=== PATIENT | male | born 1995 | race Caucasian/White ===

== ENCOUNTER 2016-08-01 19:45 | Emergency (ER) | payer OTHER ==
--- NOTE | 2016-08-01 20:45 | DIAGNOSTIC IMAGING REPORT ---
PROCEDURE: CT ABDOMEN/PELVIS W/O CONTRAST INDICATION: FLANK PAIN TECHNIQUE: Noncontrast axial images with sagittal and coronal reformations. COMPARISON: None. FINDINGS: ABDOMEN: There is moderate left hydronephrosis and hydroureter secondary to a 3 mm calculus located at the left ureteral vesicle junction. There is a 0.5 mm nonobstructing calculus in the lower pole left kidney. Right kidney and ureter are normal. Gallbladder, liver, spleen, pancreas, and aorta are normal. Bowel pattern is normal, including appendix. PELVIS: Pelvic structures are normal. IMPRESSION: 1. Moderate left hydronephrosis and hydroureter secondary to a 3 mm calculus located at the left ureteral vesicle junction. 2. There is a 0.5 mm nonobstructing calculus in the lower pole left kidney. 3. Otherwise negative CT abdomen and pelvis. 4. Findings discussed with Dr. Boris Maloney. All CT scans at this facility use dose modulation, iterative reconstruction, and/or weight-based dosing when appropriate to reduce radiation dose to as low as reasonably achievable.
--- NOTE | 2016-08-01 20:50 | ED NURSING NOTES ---
Clinical Report - Nurses [facility] [address] [place] [address] 08/01/2016 19:45 Patient: JAZMYN MARIO TRIAGE Triage time 19:51. Acuity: LEVEL 3. Chief Complaint: TESTICULAR PAIN and (left flank pain). --19:58 Getachew Magaña R.N. 19:51 08/01/16. BP: 143/95. HR: 56. RR: 16. O2 saturation: 100%. Temp: 98.7 F. Pain level now: 11/03. --19:58 Getachew Magaña R.N. Weight: 68.9 kg stated. Height/Length: 69 inches Per Patient. BMI: 22.4. --19:57 Getachew Magaña R.N. Medications Ibuprofen Oral. --19:55 Getachew Magaña R.N. Flomax Oral. --19:55 Getachew Magaña R.N. Medication/allergy information source: the patient. --19:58 Getachew Magaña R.N. Allergies No Known Drug Allergy. --19:55 Getachew Magaña R.N. History Arrived by private vehicle. Historian: patient. ( Seen at [facility] last Friday with left side flank pain radiating to groin/testicles and diagnosed kidney stones after CT Scan. Marylou started having the same pain on his left flank going to his left groin/testicles. Vomited x1 due to pain, denies fever.). Onset. (5 days ago). He has had moderate testicular pain, involving the left testicle. 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 SURGERY HX: ( broken right clavicle). --19:58 Getachew Magaña R.N. SOCIAL HX: Never smoker. Occasional alcohol use. --20:01 Getachew Magaña R.N. PROBLEMS: Nephrolithiasis. --19:57 Getachew Magaña R.N. Interventions ID band on patient. To room. --19:58 Getachew Magaña R.N. PHYSICAL ASSESSMENT Ambulatory to room. GENERAL / NEURO / PSYCH: Alert. Oriented X 4. Appears in pain. HEENT: Mucous membranes are pink. RESPIRATORY: Respirations not labored. Breath sounds within normal limits. CVS: Normal heart rate and rhythm. Capillary refill less than 2 seconds. GI / : Abdomen soft. Bowel sounds within normal limits. Urgency of urination. Left testicular tenderness. CVA tenderness on the left. SKIN: Skin is warm and dry. --20:00 Getachew Magaña R.N. NURSING PROGRESS NOTES Head of bed elevated. Reassurance given. Call light placed in reach. Side rails up x 1. Bed placed in lowest position. Brakes of bed on. Patient ready for evaluation- ED physician notified. --20:00 Getachew Magaña R.N. 20:15 08/01/2016 Site #1 started via IV in the right antecubital space with an 20g angiocath; one attempt. Blood drawn: rainbow set. Saline lock flushed with 10 mL saline. --20:20 Getachew Magaña R.N. 20:16 08/01/2016 Zofran (Ondansetron HCl) IVP 4 mg given over 2 minute(s) via site #1. Allergies verified and confirmed 5 rights. IV patency established. IV site checked: no pain, redness, or swelling. IV flushed thoroughly pre- and post-medication administration. IVP given by RN. --20:21 Getachew Magaña R.N. 20:16 08/01/2016 Dilaudid (HYDROmorphone HCl PF) IVP 0.5 mg given over 2 minute(s) via site #1. Allergies verified, confirmed 5 rights and sedative warning given to the patient. IV patency established. IV site checked: no pain, redness, or swelling. IV flushed thoroughly pre- and post-medication administration. IVP given by RN. --20:21 Getachew Magaña R.N. 20:22 08/01/2016 Toradol IVP 30 mg given over 2 minute(s) via site #1. Allergies verified and confirmed 5 rights. IV patency established. IV site checked: no pain, redness, or swelling. IV flushed thoroughly pre- and post-medication administration. IVP given by RN. --20:22 Getachew Magaña R.N. 20:30 08/01/2016 Started IV Fluids IV NS (Saline); bolus of 1000 mL over 1 hour(s) via site #1 via IV pump. Allergies verified and confirmed 5 rights. IV patency established. IV site checked: no pain, redness, or swelling. IV flushed thoroughly pre- and post-medication administration. --20:35 Getachew Magaña R.N. 20:35 08/01/16. BP: 134/82. HR: 70. RR: 16. O2 saturation: 97%. Pain level now 10. --20:38 Getachew Mgaaña R.N. Reassessment after medication administered. He is calm. Overall patient status is improved- he states feels better. ( left flank and testicle pain down to 2/10 from 910 after the medications). SKIN: Skin is warm and dry. Skin color within normal limits. --20:38 Getachew Magaña R.N. 21:00 08/01/2016 IV Fluids IV NS Discontinued: bag #1 infused upon discharge. Total amount infused: 1000 mL. IV patency established. IV site checked: no pain, redness, or swelling. IV flushed thoroughly. --21:00 Getachew Magaña R.N. 21:08/01/2016 Site #1 removed upon discharge. Manual pressure applied. --21:01 Getachew Magaña R.N. DISPOSITION / DISCHARGE No learning barriers present. Discharge instructions provided and reviewed with the patient. Reviewed medication(s) side effects, precautions, dosing and course information. Prescription(s) given to the patient. Reviewed referral to a primary care physician for followup. Work note given. Patient verbalized understanding. Written instructions provided in Japanese. The patient was discharged home and accompanied by parent. He left the Emergency Department ambulatory and via private vehicle. Parent driving. --21:05 Getachew Magaña R.N. 21:00 08/01/16. BP: 140/84. HR: 74. RR: 16. O2 saturation: 100%. Temp: 98.3 F (oral). Pain level now: 03/05. --21:05 Getachew Magaña R.N. Departure time: 21:08. --21:09 Getachew Magaña R.N. Locked/Released at 08/01/2016 21:09 by Getachew Magaña R.N.
--- NOTE | 2016-08-01 20:50 | ED CLINICAL REPORT ---
Clinical Report - Physicians/Mid Levels [facility] [address] [place] [address] 08/01/2016 19:45 Patient: JAZMYN MARIO Time Seen: 19:50 Aug 01 2016. Arrived- By private vehicle. Historian- patient. CPT: ER phys charges level 4 (#[id number]). HISTORY OF PRESENT ILLNESS Chief Complaint: LEFT FLANK PAIN and TESTICULAR PAIN. 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 Tonight started having the same pain on his left flank going to his left groin/testicles. Vomited x1 due to pain, denies fever.). and is still present (worse today). No penile discharge, discomfort with urination, urinary frequency or genital lesion. He has had moderate testicular pain, involving the left testicle. Sexual history is noncontributory. Similar symptoms previously: None. Recent medical care: The patient was seen recently at another facility in a clinic ([facility]). Seen for similar symptoms. Evaluation/treatment: CT scan and urinalysis. Diagnosis: (kidney stone). REVIEW OF SYSTEMS No fever, chills, hematuria, abdominal pain or vomiting. No diarrhea, sore throat, chest pain, difficulty breathing or joint pain. No skin rash or back pain. He has had moderate left-sided flank pain. All systems otherwise negative, except as recorded above. PAST HISTORY ( broken right clavicle).). No history of epididymitis or urinary retention. Medications: Flomax Oral. Ibuprofen Oral. Allergies: No Known Drug Allergy. SOCIAL HISTORY Never smoker. Occasional alcohol use. ADDITIONAL NOTES The nursing notes have been reviewed. PHYSICAL EXAM Vital Signs: 08/01/2016 19:51 BP: 143/95. HR: 56. RR: 16. O2 saturation: 100%. Temp: 98.7 F. Pain level now: 9/10. Appearance: Alert. Appears to be in pain. Patient in moderate distress. ENT: Normal external inspection. CVS: Heart sounds normal. Respiratory: No respiratory distress. Breath sounds normal. Abdomen: Soft and nontender. Back: Normal external inspection. No CVA tenderness. : Normal genitalia. Skin: Normal skin color. No rash. Extremities: Extremities exhibit normal ROM. Neuro: Oriented X 3. LABS, X-RAYS, AND EKG Abdominal CT: A single urinary calculus is present in the left distal ureter (3 mm). There is moderate obstruction. Moderate hydronephrosis of the left kidney. The study was independently viewed by me, interpreted by the radiologist and discussed with the radiologist. Laboratory Tests: UA-Culture if indicated: (AVIS: 08/01/2016 20:00) ( MsgRcvd 08/01/2016 20:27) Final results Test Result Flag Units (Reference) URINE COLOR YELLOW URINE APPEARANCE CLEAR URINE GLUCOSE NEGATIVE (NEGATIVE) URINE BILIRUBIN NEGATIVE (NEGATIVE) URINE KETONE 1+ (NEGATIVE) URINE SPECIFIC GRAVITY 1.020 (1.010-1.030) URINE PH 6.0 (5.0-8.0) URINE PROTEIN NEGATIVE (NEGATIVE) URINE UROBILINOGEN 0.2 EU/dL (0.2-1.0) URINE NITRITE NEGATIVE (NEGATIVE) URINE BLOOD 1+ (NEGATIVE) URINE LEUK ESTERASE NEGATIVE (NEGATIVE) URINE RBC 1-3 rbc/hpf (0-1) URINE WBC RARE wbc/hpf (0-1) URINE EPITHELIAL CELLS RARE EPI/hpf (0-5) URINE BACTERIA NONE SEEN (NONE SEEN) URINE COMMENT CULT NOT INDICATED URINE CULTURES ARE SET-UP BASED ON THE FOLLOWING CRITERIA:POSITIVE NITRITEPOSITIVE LEUKOCYTE ESTERASEGREATER THAN 10 WHITE BLOOD CELLSMODERATE (2+) OR GREATER BACTERIA . PROGRESS AND PROCEDURES Course of Care: IV NS Zofran 4 mg IV Dilaudid 0.5 mg IV Toradol 30 mg IV Patient is stable. Symptoms much better. Patient/family counseled. Disposition: Discharged. Condition: stable and improved. CLINICAL IMPRESSION Ureterolithiasis (single stone) in the left ureter with renal colic and hydronephrosis. INSTRUCTIONS Do not work for two days until better. Drink plenty of fluids. Warnings: Further evaluation is necessary. GENERAL WARNINGS: Return or contact your physician immediately if your condition worsens or changes unexpectedly, if not improving as expected, or if other problems arise. Your Current Medications: CONTINUE TAKING THE FOLLOWING MEDICATIONS: Flomax Oral. Ibuprofen Oral. Prescription Medications: Zofran (orally disintegrating tablets) 4 mg: take 1 orally every 6 hours as needed for nausea. Dispense ten (10). No refill. Oxycodone/APAP 5 mg/325 mg: take 1-2 tablets orally every 4 hours as needed for pain. Dispense twenty (20). No refill. Flomax 0.4 mg: take 1 orally every 24 hours. Dispense ten (10). No refills. Follow-up: Follow up with your doctor Friday in four days. Call for the next available appointment. Understanding of the discharge instructions verbalized by patient. (Electronically signed by Boris Maloney MD 08/05/2016 8:55)
--- NOTE | 2016-08-01 20:50 | ED ORDER SUMMARY ---
..... Patient: JAZMYN MARIO OrderSheet [facility] VisitID: [id number] [address] [place] [address] 20y, M Registration Date/Time: 08/01/2016 ORDER SHEET Weight: 68.9 kg (stated) Allergies: No Known Drug Allergy GENERAL ORDERS: CT Abd/Pel wo Cont Urgent (20:03 08/01/2016 Andriy MACKENZIE) (Ack 20:06 Louise) (20:28 Nancie) UA-Culture if indicated Urgent (20:04 08/01/2016 Andriy MACKENZIE) (20:06 Laura R.N.) (Ack 20:06 Louise) MEDICATION ORDERS: IV FLUIDS: IV NS : initial bolus 1000 mL (1000 mL/hr), then 250 mL/hr for 4h (NOW); Routine (20:03 08/01/2016 Andriy MACKENZIE) (Ack 20:06 Laura R.N.) (20:35 Laura R.N.) Toradol IV 30 mg (NOW) (20:03 08/01/2016 Andriy MACKENZIE) (Ack 20:06 Laura R.N.) (20:22 Laura R.N.) Dilaudid IV 0.5 mg (HIGH ALERT MEDICATION, NOW) (20:03 08/01/2016 Andriy MACKENZIE) (Ack 20:06 Laura R.N.) (20:21 Laura R.N.) Zofran IV 4 mg (NOW) (20:04 08/01/2016 Andriy MACKENZIE) (Ack 20:06 Laura R.N.) (20:21 Laura R.N.) ORDER SHEET NOTES: [Electronically signed by Getachew Magaña R.N. (21:09 08/01/2016)] [Electronically signed by Boris Maloney MD (08:55 08/05/2016)] [Electronically locked/signed by Getachew Magaña R.N. (21:09 08/01/2016)]
--- NOTE | 2016-08-01 20:50 | ED ORDER SUMMARY ---
..... Patient: JAZMYN MARIO OrderSheet [facility] VisitID: [id number] [address] [place] [address] 20y, M Registration Date/Time: 08/01/2016 ORDER SHEET Weight: 68.9 kg (stated) Allergies: No Known Drug Allergy GENERAL ORDERS: CT Abd/Pel wo Cont Urgent (20:03 08/01/2016 Andriy MACKENZIE) (Ack 20:06 Louise) (20:28 Nancie) UA-Culture if indicated Urgent (20:04 08/01/2016 Andriy MACKENZIE) (20:06 Laura R.N.) (Ack 20:06 Louise) MEDICATION ORDERS: IV FLUIDS: IV NS : initial bolus 1000 mL (1000 mL/hr), then 250 mL/hr for 4h (NOW); Routine (20:03 08/01/2016 Andriy MAKCENZIE) (Ack 20:06 Laura R.N.) (20:35 Laura R.N.) Toradol IV 30 mg (NOW) (20:03 08/01/2016 Andriy MACKENZIE) (Ack 20:06 Laura R.N.) (20:22 Laura R.N.) Dilaudid IV 0.5 mg (HIGH ALERT MEDICATION, NOW) (20:03 08/01/2016 Andriy MACKENZIE) (Ack 20:06 Laura R.N.) (20:21 Laura R.N.) Zofran IV 4 mg (NOW) (20:04 08/01/2016 Andriy MACKENZIE) (Ack 20:06 Laura R.N.) (20:21 Laura R.N.) ORDER SHEET NOTES: [Electronically signed by Getachew Magaña R.N. (21:09 08/01/2016)] [Electronically signed by Boris Maloney MD (08:55 08/05/2016)] [Electronically locked/signed by Getachew Magaña R.N. (21:09 08/01/2016)]
--- NOTE | 2016-08-01 20:50 | ED NURSING NOTES ---
Clinical Report - Nurses [facility] [address] [place] [address] 08/01/2016 19:45 Patient: JAZMYN MARIO TRIAGE Triage time 19:51. Acuity: LEVEL 3. Chief Complaint: TESTICULAR PAIN and (left flank pain). --19:58 Getachew Magaña R.N. 19:51 08/01/16. BP: 143/95. HR: 56. RR: 16. O2 saturation: 100%. Temp: 98.7 F. Pain level now: 11/03. --19:58 Getachew Magaña R.N. Weight: 68.9 kg stated. Height/Length: 69 inches Per Patient. BMI: 22.4. --19:57 Getachew Magaña R.N. Medications Ibuprofen Oral. --19:55 Getachew Magaña R.N. Flomax Oral. --19:55 Getachew Magaña R.N. Medication/allergy information source: the patient. --19:58 Getachew Magaña R.N. Allergies No Known Drug Allergy. --19:55 Getachew Magaña R.N. History Arrived by private vehicle. Historian: patient. ( Seen at [facility] last Friday with left side flank pain radiating to groin/testicles and diagnosed kidney stones after CT Scan. Marylou started having the same pain on his left flank going to his left groin/testicles. Vomited x1 due to pain, denies fever.). Onset. (5 days ago). He has had moderate testicular pain, involving the left testicle. 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 SURGERY HX: ( broken right clavicle). --19:58 Getachew Magaña R.N. SOCIAL HX: Never smoker. Occasional alcohol use. --20:01 Getachew Magaña R.N. PROBLEMS: Nephrolithiasis. --19:57 Getachew Magaña R.N. Interventions ID band on patient. To room. --19:58 Getachew Magaña R.N. PHYSICAL ASSESSMENT Ambulatory to room. GENERAL / NEURO / PSYCH: Alert. Oriented X 4. Appears in pain. HEENT: Mucous membranes are pink. RESPIRATORY: Respirations not labored. Breath sounds within normal limits. CVS: Normal heart rate and rhythm. Capillary refill less than 2 seconds. GI / : Abdomen soft. Bowel sounds within normal limits. Urgency of urination. Left testicular tenderness. CVA tenderness on the left. SKIN: Skin is warm and dry. --20:00 Getachew Magaña R.N. NURSING PROGRESS NOTES Head of bed elevated. Reassurance given. Call light placed in reach. Side rails up x 1. Bed placed in lowest position. Brakes of bed on. Patient ready for evaluation- ED physician notified. --20:00 Getachew Magaña R.N. 20:15 08/01/2016 Site #1 started via IV in the right antecubital space with an 20g angiocath; one attempt. Blood drawn: rainbow set. Saline lock flushed with 10 mL saline. --20:20 Getachew Magaña R.N. 20:16 08/01/2016 Zofran (Ondansetron HCl) IVP 4 mg given over 2 minute(s) via site #1. Allergies verified and confirmed 5 rights. IV patency established. IV site checked: no pain, redness, or swelling. IV flushed thoroughly pre- and post-medication administration. IVP given by RN. --20:21 Getachew Magaña R.N. 20:16 08/01/2016 Dilaudid (HYDROmorphone HCl PF) IVP 0.5 mg given over 2 minute(s) via site #1. Allergies verified, confirmed 5 rights and sedative warning given to the patient. IV patency established. IV site checked: no pain, redness, or swelling. IV flushed thoroughly pre- and post-medication administration. IVP given by RN. --20:21 Getachew Magaña R.N. 20:22 08/01/2016 Toradol IVP 30 mg given over 2 minute(s) via site #1. Allergies verified and confirmed 5 rights. IV patency established. IV site checked: no pain, redness, or swelling. IV flushed thoroughly pre- and post-medication administration. IVP given by RN. --20:22 Getachew Magaña R.N. 20:30 08/01/2016 Started IV Fluids IV NS (Saline); bolus of 1000 mL over 1 hour(s) via site #1 via IV pump. Allergies verified and confirmed 5 rights. IV patency established. IV site checked: no pain, redness, or swelling. IV flushed thoroughly pre- and post-medication administration. --20:35 Getachew Magaña R.N. 20:35 08/01/16. BP: 134/82. HR: 70. RR: 16. O2 saturation: 97%. Pain level now 10. --20:38 Getachew Magaña R.N. Reassessment after medication administered. He is calm. Overall patient status is improved- he states feels better. ( left flank and testicle pain down to 2/10 from 910 after the medications). SKIN: Skin is warm and dry. Skin color within normal limits. --20:38 Getachew Magaña R.N. 21:00 08/01/2016 IV Fluids IV NS Discontinued: bag #1 infused upon discharge. Total amount infused: 1000 mL. IV patency established. IV site checked: no pain, redness, or swelling. IV flushed thoroughly. --21:00 Getachew Magaña R.N. 21:08/01/2016 Site #1 removed upon discharge. Manual pressure applied. --21:01 Getachew Magaña R.N. DISPOSITION / DISCHARGE No learning barriers present. Discharge instructions provided and reviewed with the patient. Reviewed medication(s) side effects, precautions, dosing and course information. Prescription(s) given to the patient. Reviewed referral to a primary care physician for followup. Work note given. Patient verbalized understanding. Written instructions provided in Martiniquais. The patient was discharged home and accompanied by parent. He left the Emergency Department ambulatory and via private vehicle. Parent driving. --21:05 Getachew Magaña R.N. 21:00 08/01/16. BP: 140/84. HR: 74. RR: 16. O2 saturation: 100%. Temp: 98.3 F (oral). Pain level now: 03/05. --21:05 Getachew Magaña R.N. Departure time: 21:08. --21:09 Getachew Magaña R.N. Locked/Released at 08/01/2016 21:09 by Getachew Magaña R.N.
--- NOTE | 2016-08-01 20:50 | ED CLINICAL REPORT ---
Clinical Report - Physicians/Mid Levels Located [facility] [address] [place] [address] 08/01/2016 19:45 Patient: JAZMYN MARIO Time Seen: 19:50 Aug 01 2016. Arrived- By private vehicle. Historian- patient. CPT: ER phys charges level 4 (#[id number]). HISTORY OF PRESENT ILLNESS Chief Complaint: LEFT FLANK PAIN and TESTICULAR PAIN. 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 Tonight started having the same pain on his left flank going to his left groin/testicles. Vomited x1 due to pain, denies fever.). and is still present (worse today). No penile discharge, discomfort with urination, urinary frequency or genital lesion. He has had moderate testicular pain, involving the left testicle. Sexual history is noncontributory. Similar symptoms previously: None. Recent medical care: The patient was seen recently at another facility in a clinic ([facility]). Seen for similar symptoms. Evaluation/treatment: CT scan and urinalysis. Diagnosis: (kidney stone). REVIEW OF SYSTEMS No fever, chills, hematuria, abdominal pain or vomiting. No diarrhea, sore throat, chest pain, difficulty breathing or joint pain. No skin rash or back pain. He has had moderate left-sided flank pain. All systems otherwise negative, except as recorded above. PAST HISTORY ( broken right clavicle).). No history of epididymitis or urinary retention. Medications: Flomax Oral. Ibuprofen Oral. Allergies: No Known Drug Allergy. SOCIAL HISTORY Never smoker. Occasional alcohol use. ADDITIONAL NOTES The nursing notes have been reviewed. PHYSICAL EXAM Vital Signs: 08/01/2016 19:51 BP: 143/95. HR: 56. RR: 16. O2 saturation: 100%. Temp: 98.7 F. Pain level now: 9/10. Appearance: Alert. Appears to be in pain. Patient in moderate distress. ENT: Normal external inspection. CVS: Heart sounds normal. Respiratory: No respiratory distress. Breath sounds normal. Abdomen: Soft and nontender. Back: Normal external inspection. No CVA tenderness. : Normal genitalia. Skin: Normal skin color. No rash. Extremities: Extremities exhibit normal ROM. Neuro: Oriented X 3. LABS, X-RAYS, AND EKG Abdominal CT: A single urinary calculus is present in the left distal ureter (3 mm). There is moderate obstruction. Moderate hydronephrosis of the left kidney. The study was independently viewed by me, interpreted by the radiologist and discussed with the radiologist. Laboratory Tests: UA-Culture if indicated: (AVIS: 08/01/2016 20:00) ( MsgRcvd 08/01/2016 20:27) Final results Test Result Flag Units (Reference) URINE COLOR YELLOW URINE APPEARANCE CLEAR URINE GLUCOSE NEGATIVE (NEGATIVE) URINE BILIRUBIN NEGATIVE (NEGATIVE) URINE KETONE 1+ (NEGATIVE) URINE SPECIFIC GRAVITY 1.020 (1.010-1.030) URINE PH 6.0 (5.0-8.0) URINE PROTEIN NEGATIVE (NEGATIVE) URINE UROBILINOGEN 0.2 EU/dL (0.2-1.0) URINE NITRITE NEGATIVE (NEGATIVE) URINE BLOOD 1+ (NEGATIVE) URINE LEUK ESTERASE NEGATIVE (NEGATIVE) URINE RBC 1-3 rbc/hpf (0-1) URINE WBC RARE wbc/hpf (0-1) URINE EPITHELIAL CELLS RARE EPI/hpf (0-5) URINE BACTERIA NONE SEEN (NONE SEEN) URINE COMMENT CULT NOT INDICATED URINE CULTURES ARE SET-UP BASED ON THE FOLLOWING CRITERIA:POSITIVE NITRITEPOSITIVE LEUKOCYTE ESTERASEGREATER THAN 10 WHITE BLOOD CELLSMODERATE (2+) OR GREATER BACTERIA . PROGRESS AND PROCEDURES Course of Care: IV NS Zofran 4 mg IV Dilaudid 0.5 mg IV Toradol 30 mg IV Patient is stable. Symptoms much better. Patient/family counseled. Disposition: Discharged. Condition: stable and improved. CLINICAL IMPRESSION Ureterolithiasis (single stone) in the left ureter with renal colic and hydronephrosis. INSTRUCTIONS Do not work for two days until better. Drink plenty of fluids. Warnings: Further evaluation is necessary. GENERAL WARNINGS: Return or contact your physician immediately if your condition worsens or changes unexpectedly, if not improving as expected, or if other problems arise. Your Current Medications: CONTINUE TAKING THE FOLLOWING MEDICATIONS: Flomax Oral. Ibuprofen Oral. Prescription Medications: Zofran (orally disintegrating tablets) 4 mg: take 1 orally every 6 hours as needed for nausea. Dispense ten (10). No refill. Oxycodone/APAP 5 mg/325 mg: take 1-2 tablets orally every 4 hours as needed for pain. Dispense twenty (20). No refill. Flomax 0.4 mg: take 1 orally every 24 hours. Dispense ten (10). No refills. Follow-up: Follow up with your doctor Friday in four days. Call for the next available appointment. Understanding of the discharge instructions verbalized by patient. (Electronically signed by Boris Maloney MD 08/05/2016 8:55)
--- NOTE | 2016-08-05 08:56 | ED MAR SUMMARY ---
..... Medication Administration Record [facility] [address] [place] [address] Patient: JAZMYN MARIO Visit ID: [id number] 20y, M Weight: 68.9 kg Height/Length: 69 in BMI: 22.4 ALLERGIES: No Known Drug Allergy Given 20:16 08/01/2016 Getachew Magaña R.N. Medication Administered: DILAUDID [IVP] (HYDROMORPHONE HCL PF), Dose: 0.5 mg IVP over 2 minute(s), Site: #1 right AC. Medication Ordered: Dilaudid IV 0.5 mg (HIGH ALERT MEDICATION, NOW). Given 20:16 08/01/2016 Getachew Magaña R.N. Medication Administered: ZOFRAN [IVP] (ONDANSETRON HCL), Dose: 4 mg IVP over 2 minute(s), Site: #1 right AC. Medication Ordered: Zofran IV 4 mg (NOW). Given 20:22 08/01/2016 Getachew Magaña R.N. Medication Administered: TORADOL [IVP], Dose: 30 mg IVP over 2 minute(s), Site: #1 right AC. Medication Ordered: Toradol IV 30 mg (NOW). Start 20:30 08/01/2016 Getachew Magaña R.N., Stop 21:00 08/01/2016 Getachew Magaña R.N. Medication Administered: IV NS (SALINE), Dose: IV Fluids, Bolus: 1000 mL over 1 hour(s), Site: #1 right AC. Medication Ordered: IV NS : initial bolus 1000 mL (1000 mL/hr), then 250 mL/hr for 4h (NOW); Routine.
--- NOTE | 2016-08-05 08:56 | ED DISCHARGE INSTRUCTIONS ---
Patient: JAZMYN MARIO General Instructions [facility] VisitID: [id number] [place] [address] 20y, M Registration Date/Time: 08/01/2016 Ureterolithiasis (single stone) in the left ureter with renal colic and hydronephrosis. INSTRUCTIONS Do not work for two days until better. Drink plenty of fluids. Warnings: Further evaluation is necessary. GENERAL WARNINGS: Return or contact your physician immediately if your condition worsens or changes unexpectedly, if not improving as expected, or if other problems arise. Your Current Medications: CONTINUE TAKING THE FOLLOWING MEDICATIONS: Flomax Oral. Ibuprofen Oral. Prescription Medications: Zofran (orally disintegrating tablets) 4 mg: take 1 orally every 6 hours as needed for nausea. Dispense ten (10). No refill. Oxycodone/APAP 5 mg/325 mg: take 1-2 tablets orally every 4 hours as needed for pain. Dispense twenty (20). No refill. Flomax 0.4 mg: take 1 orally every 24 hours. Dispense ten (10). No refills. Follow-up: Follow up with your doctor Friday in four days. Call for the next available appointment. Understanding of the discharge instructions verbalized by patient. ADDITIONAL INFORMATION Kidney Stone (W/ Colic) The sharp cramping pain and nausea/vomiting that you have is due to a small stone which has formed in the kidney and is now passing down a narrow tube (ureter) on its way to your bladder. Once it reaches your bladder, the pain will stop. The stone may pass in your urine stream in one piece. [The size may be 1/16" to 1/4" (1-6mm)]. Or, the stone may also break up into zeyad fragments which you may not even notice. Once you have had a kidney stone, you are at risk for developing another one in the future. Home Care: Drink plenty of fluids (at least 8 to 10 glasses of water a day). Most stones will pass on their own, but may take from a few hours to a few days. Sometimes the stone is too large to pass by itself and special methods will have to be used to remove the stone. Each time you urinate, do so in a jar. Pour the urine from the jar through the strainer and into the toilet. Continue doing this until 24 hours after your pain stops. By then, if there was a kidney stone, it should pass from your bladder. Some stones dissolve into sand-like particles and pass right through the strainer. In that case, you wont ever see a stone. Save any stone that you find in the strainer and bring it to your doctor for analysis. It may be possible to prevent certain types of stones from forming. Therefore, it is important to know what kind of stone you have. Try to stay as active as possible since this will help the stone pass. Do not stay in bed unless your pain prevents you from getting up. You may notice a red, pink or brown color to your urine. This is normal while passing a kidney stone. Follow Up with your doctor or return to this facility if the pain lasts more than 48 hours. Get Prompt Medical Attention if any of the following occur: Pain that is not controlled by the medicine given Repeated vomiting or unable to keep down fluids Weakness, dizziness or fainting Fever of 100.4F (38C) or higher, or as directed by your healthcare provider Passage of solid red or brown urine (can't see through it) or urine with lots of blood clots Unable to pass urine for 8 hours and increasing bladder pressure Ondansetron Oral disintegrating tablet What is this medicine? ONDANSETRON (on TOSHA se benny) is used to treat nausea and vomiting caused by chemotherapy. It is also used to prevent or treat nausea and vomiting after surgery. How should I use this medicine? These tablets are made to dissolve in the mouth. Do not try to push the tablet through the foil backing. With dry hands, peel away the foil backing and gently remove the tablet. Place the tablet in the mouth and allow it to dissolve, then swallow. While you may take these tablets with water, it is not necessary to do so. Talk to your rack washer regarding the use of this medicine in children. Special care may be needed. What side effects may I notice from receiving this medicine? Side effects that you should report to your doctor or health assurance services manager health care as soon as possible: allergic reactions like skin rash, itching or hives, swelling of the face, lips, or tongue breathing problems dizziness fast or irregular heartbeat feeling faint or lightheaded, falls fever and chills swelling of the hands and feet tightness in the chest Side effects that usually do not require medical attention (report to your doctor or health assurance services manager health care if they continue or are bothersome): constipation or diarrhea headache What may interact with this medicine? Do not take this medicine with any of the following medications: -apomorphine -cisapride -dofetilide -dronedarone -pimozide -thioridazine -ziprasidone This medicine may also interact with the following medications: -carbamazepine -phenytoin -rifampicin -tramadol -other medicines that prolong the QT interval (cause an abnormal heart rhythm) What if I miss a dose? If you miss a dose, take it as soon as you can. If it is almost time for your next dose, take only that dose. Do not take double or extra doses. Where should I keep my medicine? Keep out of the reach of children. Store between 2 and 30 degrees C (36 and 86 degrees F). Throw away any unused medicine after the expiration date. What should I tell my health care provider before I take this medicine? They need to know if you have any of these conditions: heart disease history of irregular heartbeat liver disease low levels of magnesium or potassium in the blood an unusual or allergic reaction to ondansetron, granisetron, other medicines, foods, dyes, or preservatives or trying to get breast-feeding What should I watch for while using this medicine? Check with your doctor or health assurance services manager health care as soon as you can if you have any sign of an allergic reaction. Oxycodone Hydrochloride, Acetaminophen Oral tablet What is this medicine? ACETAMINOPHEN; OXYCODONE (a set a DREW galo fen; ox i KOE done) is a pain reliever. It is used to treat mild to moderate pain. How should I use this medicine? Take this medicine by mouth with a full glass of water. Follow the directions on the prescription label. Take your medicine at regular intervals. Do not take your medicine more often than directed. Talk to your rack washer regarding the use of this medicine in children. Special care may be needed. Patients over 65 years old may have a stronger reaction and need a smaller dose. What side effects may I notice from receiving this medicine? Side effects that you should report to your doctor or health assurance services manager health care as soon as possible: allergic reactions like skin rash, itching or hives, swelling of the face, lips, or tongue breathing difficulties, wheezing confusion light headedness or fainting spells severe stomach pain yellowing of the skin or the whites of the eyes Side effects that usually do not require medical attention (report to your doctor or health assurance services manager health care if they continue or are bothersome): dizziness drowsiness nausea vomiting What may interact with this medicine? alcohol antihistamines barbiturates like amobarbital, butalbital, butabarbital, methohexital, pentobarbital, phenobarbital, thiopental, and secobarbital benztropine drugs for bladder problems like solifenacin, trospium, oxybutynin, tolterodine, hyoscyamine, and methscopolamine drugs for breathing problems like ipratropium and tiotropium drugs for certain stomach or intestine problems like propantheline, homatropine methylbromide, glycopyrrolate, atropine, belladonna, and dicyclomine general anesthetics like etomidate, ketamine, nitrous oxide, propofol, desflurane, enflurane, halothane, isoflurane, and sevoflurane medicines for depression, anxiety, or psychotic disturbances medicines for sleep muscle relaxants naltrexone narcotic medicines (opiates) for pain phenothiazines like perphenazine, thioridazine, chlorpromazine, mesoridazine, fluphenazine, prochlorperazine, promazine, and trifluoperazine scopolamine tramadol trihexyphenidyl What if I miss a dose? If you miss a dose, take it as soon as you can. If it is almost time for your next dose, take only that dose. Do not take double or extra doses. Where should I keep my medicine? Keep out of the reach of children. This medicine can be abused. Keep your medicine in a safe place to protect it from theft. Do not share this medicine with anyone. Selling or giving away this medicine is dangerous and against the law. Store at room temperature between 20 and 25 degrees C (68 and 77 degrees F). Keep container tightly closed. Protect from light. This medicine may cause accidental overdose and if it is taken by other adults, children, or pets. Flush any unused medicine down the toilet to reduce the chance of harm. Do not use the medicine after the expiration date. What should I tell my health care provider before I take this medicine? They need to know if you have any of these conditions: brain tumor Crohn's disease, inflammatory bowel disease, or ulcerative colitis drink more than 3 alcohol containing drinks per day drug abuse or addiction head injury heart or circulation problems kidney disease or problems going to the bathroom liver disease lung disease, asthma, or breathing problems an unusual or allergic reaction to acetaminophen, oxycodone, other opioid analgesics, other medicines, foods, dyes, or preservatives or trying to get breast-feeding What should I watch for while using this medicine? Tell your doctor or health assurance services manager health care if your pain does not go away, if it gets worse, or if you have new or a different type of pain. You may develop tolerance to the medicine. Tolerance means that you will need a higher dose of the medication for pain relief. Tolerance is normal and is expected if you take this medicine for a long time. Do not suddenly stop taking your medicine because you may develop a severe reaction. Your body becomes used to the medicine. This does NOT mean you are addicted. Addiction is a behavior related to getting and using a drug for a non-medical reason. If you have pain, you have a medical reason to take pain medicine. Your doctor will tell you how much medicine to take. If your doctor wants you to stop the medicine, the dose will be slowly lowered over time to avoid any side effects. You may get drowsy or dizzy. Do not drive, use machinery, or do anything that needs mental alertness until you know how this medicine affects you. Do not stand or sit up quickly, especially if you are an older patient. This reduces the risk of dizzy or fainting spells. Alcohol may interfere with the effect of this medicine. Avoid alcoholic drinks. There are different types of narcotic medicines (opiates) for pain. If you take more than one type at the same time, you may have more side effects. Give your health care provider a list of all medicines you use. Your doctor will tell you how much medicine to take. Do not take more medicine than directed. Call emergency for help if you have problems breathing. The medicine will cause constipation. Try to have a bowel movement at least every 2 to 3 days. If you do not have a bowel movement for 3 days, call your doctor or health assurance services manager health care. Do not take Tylenol (acetaminophen) or medicines that have acetaminophen with this medicine. Too much acetaminophen can be very dangerous. Many nonprescription medicines contain acetaminophen. Always read the labels carefully to avoid taking more acetaminophen. You have been given the following additional information: Kidney Stone W/ Colic Ondansetron Oral disintegrating tablet Oxycodone Hydrochloride, Acetaminophen Oral tablet Do not work for two days until better. (Electronically signed by Boris Maloney MD 08/05/2016 8:55)
--- NOTE | 2016-08-05 08:56 | ED MAR SUMMARY ---
..... Medication Administration Record [facility] [address] [place] [address] Patient: JAZMYN MARIO Visit ID: [id number] 20y, M Weight: 68.9 kg Height/Length: 69 in BMI: 22.4 ALLERGIES: No Known Drug Allergy Given 20:16 08/01/2016 Getachew Magaña R.N. Medication Administered: DILAUDID [IVP] (HYDROMORPHONE HCL PF), Dose: 0.5 mg IVP over 2 minute(s), Site: #1 right AC. Medication Ordered: Dilaudid IV 0.5 mg (HIGH ALERT MEDICATION, NOW). Given 20:16 08/01/2016 Getachew Magaña R.N. Medication Administered: ZOFRAN [IVP] (ONDANSETRON HCL), Dose: 4 mg IVP over 2 minute(s), Site: #1 right AC. Medication Ordered: Zofran IV 4 mg (NOW). Given 20:22 08/01/2016 Getachew Magaña R.N. Medication Administered: TORADOL [IVP], Dose: 30 mg IVP over 2 minute(s), Site: #1 right AC. Medication Ordered: Toradol IV 30 mg (NOW). Start 20:30 08/01/2016 Getachew Magaña R.N., Stop 21:00 08/01/2016 Getachew Magaña R.N. Medication Administered: IV NS (SALINE), Dose: IV Fluids, Bolus: 1000 mL over 1 hour(s), Site: #1 right AC. Medication Ordered: IV NS : initial bolus 1000 mL (1000 mL/hr), then 250 mL/hr for 4h (NOW); Routine.
--- NOTE | 2016-08-05 08:56 | ED MED RECONCILIATION SUMMARY ---
Patient: JAZMYN MARIO Medication Reconciliation Report [facility] VisitID: [id number] [address] [place] [address] 20y, M Registration Date/Time: 08/01/2016 Weight: 68.9 kg Height/Length: 69 in. BMI: 22.4 ALLERGIES: No Known Drug Allergy The patient's Home Medications are listed below: CONTINUE TAKING THE FOLLOWING MEDICATIONS: Flomax Oral Ibuprofen Oral The source(s) of the original Home Medication information: patient The following Medications were given to the patient in the Emergency Department: Zofran [IVP] IVP 4 mg, administered: 08/01/2016 8:16:00 PM Dilaudid [IVP] IVP 0.5 mg, administered: 08/01/2016 8:16:00 PM Toradol [IVP] IVP 30 mg, administered: 08/01/2016 8:22:00 PM IV NS IV Fluids bolus 1000 mL over 1 hour(s), administered: 08/01/2016 8:30:00 PM The following Medications were prescribed to the patient: Zofran (orally disintegrating tablets) 4 mg: take 1 orally every 6 hours as needed for nausea. Dispense ten (10). No refill. -- Boris Maloney MD Oxycodone/APAP 5 mg/325 mg: take 1-2 tablets orally every 4 hours as needed for pain. Dispense twenty (20). No refill. -- Boris Maloney MD Flomax 0.4 mg: take 1 orally every 24 hours. Dispense ten (10). No refills. -- Boris Maloney MD
--- NOTE | 2016-08-05 08:56 | ED MED RECONCILIATION SUMMARY ---
Patient: JAZMYN MARIO Medication Reconciliation Report [facility] VisitID: [id number] [address] [place] [address] 20y, M Registration Date/Time: 08/01/2016 Weight: 68.9 kg Height/Length: 69 in. BMI: 22.4 ALLERGIES: No Known Drug Allergy The patient's Home Medications are listed below: CONTINUE TAKING THE FOLLOWING MEDICATIONS: Flomax Oral Ibuprofen Oral The source(s) of the original Home Medication information: patient The following Medications were given to the patient in the Emergency Department: Zofran [IVP] IVP 4 mg, administered: 08/01/2016 8:16:00 PM Dilaudid [IVP] IVP 0.5 mg, administered: 08/01/2016 8:16:00 PM Toradol [IVP] IVP 30 mg, administered: 08/01/2016 8:22:00 PM IV NS IV Fluids bolus 1000 mL over 1 hour(s), administered: 08/01/2016 8:30:00 PM The following Medications were prescribed to the patient: Zofran (orally disintegrating tablets) 4 mg: take 1 orally every 6 hours as needed for nausea. Dispense ten (10). No refill. -- Boris Maloney MD Oxycodone/APAP 5 mg/325 mg: take 1-2 tablets orally every 4 hours as needed for pain. Dispense twenty (20). No refill. -- Boris Maloney MD Flomax 0.4 mg: take 1 orally every 24 hours. Dispense ten (10). No refills. -- Boris Maloney MD
== END 2016-08-01 21:11 | disposition home or self-care (01) ==
LOC: ED SRH 19:45
DX: N13.2 Hydronephrosis with renal and ureteral calculous obstruction (principal); Z87.442 Personal history of urinary calculi; Z79.899 Other long term (current) drug therapy; Z79.1 Long term (current) use of non-steroidal anti-inflammatories (NSAID)
CPT/HCPCS: 90004

== ENCOUNTER 2016-08-10 08:40 | Emergency (ER) | payer OTHER ==
--- NOTE | 2016-08-10 10:12 | ED CLINICAL REPORT ---
Clinical Report - Physicians/Mid Levels [facility] [address] [place] [address] 08/10/2016 8:42 Patient: JAZMYN MARIO Time Seen: 09:25 Aug 10 2016. Arrived- By private vehicle. Historian- patient. CPT: ER phys charges level 4 (#[id number]). HISTORY OF PRESENT ILLNESS Chief Complaint: FLANK PAIN. At its maximum, severity described as severe. When seen in the E.D., severity described as moderate. Modifying factors. Not worsened by anything. Not relieved by anything. It is described as "pain" and sharp and it is described as located in the left flank. This started today and is still present. No nausea, vomiting or diarrhea. Similar symptoms previously: Recent medical care: The patient was seen recently at this facility in the emergency department (9 days [employer]). Seen for similar symptoms. Evaluation/treatment: abdominal CT scan. Diagnosis: kidney stone. REVIEW OF SYSTEMS No constipation, black stools, hematemesis, difficulty with urination or pain with urination. No urinary frequency, fever, sore throat, chest pain or difficulty breathing. No cough, joint pain, skin rash, chills or back pain. All systems otherwise negative, except as recorded above. PAST HISTORY Ureterolithiasis. Nephrolithiasis. Vomiting. Diarrhea. Abdominal Pain. Contusion. Sprain. Medications: Percocet Oral, as needed. Allergies: No Known Drug Allergy. SOCIAL HISTORY Never smoker. No alcohol use or drug use. ADDITIONAL NOTES The nursing notes have been reviewed. PHYSICAL EXAM Vital Signs: 08/10/2016 09:02 BP: 157/105. HR: 70. RR: 15. O2 saturation: 97%. Temp: 97.8 F. Appearance: Alert. Appears to be in pain. Patient in moderate distress. Eyes: Pupils equal, round and reactive to light. Eyes normal inspection. ENT: Ears normal. Nose normal. Pharynx normal. Neck: Normal inspection. Neck supple. CVS: Normal heart rate and rhythm. Heart sounds normal. Pulses normal. Respiratory: No respiratory distress. Breath sounds normal. Chest nontender. Abdomen: Soft and nontender. Bowel sounds normal. Back: Normal inspection. No CVA tenderness. Skin: Skin warm. Normal skin color. No rash. Extremities: Extremities exhibit normal ROM. No lower extremity edema. Neuro: Oriented X 3. No motor deficit. No sensory deficit. LABS, X-RAYS, AND EKG Laboratory Tests: UA-Culture if indicated: (AVIS: 08/10/2016 09:02) ( MsgRcvd 08/10/2016 09:28) Final results Test Result Flag Units (Reference) URINE COLOR YELLOW URINE APPEARANCE CLEAR URINE GLUCOSE NEGATIVE (NEGATIVE) URINE BILIRUBIN NEGATIVE (NEGATIVE) URINE KETONE NEGATIVE (NEGATIVE) URINE SPECIFIC GRAVITY 1.010 (1.010-1.030) URINE PH 6.5 (5.0-8.0) URINE PROTEIN NEGATIVE (NEGATIVE) URINE UROBILINOGEN 0.2 EU/dL (0.2-1.0) URINE NITRITE NEGATIVE (NEGATIVE) URINE BLOOD 3+ (NEGATIVE) URINE LEUK ESTERASE NEGATIVE (NEGATIVE) URINE RBC 50-75 rbc/hpf (0-1) URINE WBC 0-1 wbc/hpf (0-1) URINE EPITHELIAL CELLS 0-1 EPI/hpf (0-5) URINE BACTERIA NONE SEEN (NONE SEEN) URINE COMMENT CULT NOT INDICATED URINE CULTURES ARE SET-UP BASED ON THE FOLLOWING CRITERIA:POSITIVE NITRITEPOSITIVE LEUKOCYTE ESTERASEGREATER THAN 10 WHITE BLOOD CELLSMODERATE (2+) OR GREATER BACTERIA . PROGRESS AND PROCEDURES Course of Care: Called the on-call PCP: CT from 3 days ago. NO stone in the ureter. No hydro but CT was done with contrast. Pt likely has a recurrent stone on the left. Pt has had 2 CT scans in the past 10 days. Clinically he has a stone so will treat with pain medications and image only if not resolving. Dilaudid 1 mg IV Zofran 4 mg IV Toradol 30 mg IV Patient is stable. Symptoms much better. Patient/family counseled. Disposition: Discharged. Condition: stable. CLINICAL IMPRESSION Ureterolithiasis (single stone) in the left ureter with renal colic. INSTRUCTIONS Rest. Do not work for two days until better. Drink plenty of fluids. Warnings: Further evaluation is necessary. GENERAL WARNINGS: Return or contact your physician immediately if your condition worsens or changes unexpectedly, if not improving as expected, or if other problems arise. Your Current Medications: CONTINUE TAKING THE FOLLOWING MEDICATIONS: Percocet Oral : prn. Prescription Medications: Zofran (orally disintegrating tablets) 4 mg: take 1 orally every 6 hours as needed for nausea. Dispense five (5). No refill. Oxycodone/APAP 5 mg/325 mg: take 1-2 tablets orally every 4 hours as needed for pain. Dispense twenty-five (25). No refill. Flomax 0.4 mg: take 1 orally every 24 hours. Dispense five (5). No refills. Substitution is permissible. Follow-up: Follow up with your doctor in two days if not better. Understanding of the discharge instructions verbalized by patient. (Electronically signed by Boris Maloney MD 08/11/2016 7:59)
--- NOTE | 2016-08-10 10:12 | ED ORDER SUMMARY ---
..... Patient: JAZMYN MARIO OrderSheet [facility] VisitID: [id number] [place] [address] 20y, M Registration Date/Time: 08/10/2016 ORDER SHEET Weight: 68.0 kg (stated) Allergies: No Known Drug Allergy GENERAL ORDERS: UA-Culture if indicated Urgent (09:08/10/2016 Andriy MACKENZIE) (Ack 9:12 Asad) (9:19 Joe R.N.) MEDICATION ORDERS: IV FLUIDS: IV NS : initial bolus 1000 mL (1000 mL/hr), then 200 mL/hr for 4h (NOW); Routine (:08/10/2016 Andriy MACKENZIE) (9:14 Joe Bajwa.N.) Toradol IV 30 mg (NOW) (09:08/10/2016 Andriy MACKENZIE) (9:14 Joe Bajwa.N.) Dilaudid IV 1 mg (NOW) (09:08/10/2016 Andriy MACKENZIE) (9:19 Joe R.N.) Zofran IV 4 mg (NOW) (09:08/10/2016 Andriy MACKENZIE) (9:18 Joe Bajwa.N.) ORDER SHEET NOTES: [Electronically signed by Nika Arshad R.N. (10:08/10/2016)] [Electronically signed by Boris Maloney MD (07:59 08/11/2016)] [Electronically locked/signed by Nika Arshad R.N. (10:08/10/2016)]
--- NOTE | 2016-08-10 10:12 | ED NURSING NOTES ---
Clinical Report - Nurses [facility] [address] [place] [address] 08/10/2016 8:42 Patient: JAZMYN MARIO TRIAGE Triage time 09:02. Acuity: LEVEL 3. Chief Complaint: ABDOMINAL PAIN and ("kidney stones."). Alert. No acute distress. ( Pt. states this all started x2 weeks ago. He was seen here and at [facility]. He had a CT scan and has kidney stones. He is here today because of the severe pain. He is not able to control it with the Percocet.). SEPSIS SCREEN: Sepsis Screen. Negative (no infection suspected/documented). ORLY COMA SCORE: Orly Coma Scale: 15- eyes open spontaneously (4); best verbal response- oriented x 4 (5); best motor response- obeys commands (6). --09:07 Nika Arshad R.N. 09:02 08/10/16. BP: 157/105. HR: 70. RR: 15. O2 saturation: 97%. Temp: 97.8 F. Pain level now 8/10. --09:07 Nika Arshad R.N. Weight: 68 kg stated. Height/Length: 69 inches Per Patient. BMI: 22.2. --09:06 Nika Arshad R.N. Medications Percocet Oral, as needed. --09:06 Nika Arshad R.N. Allergies No Known Drug Allergy. --09:06 Nika Arshad R.N. History Arrived by private vehicle. Historian: patient. Accompanied by mother. Primary physician (Dr. Ray). This started today. 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 PAST MEDICAL HX: Immunizations: up-to-date. SOCIAL HX: Never smoker. No alcohol use or drug use. No recent travel. No infectious disease exposure. SELF HARM ASSESSMENT: A self harm assessment was performed. The patient answered "no" to the question "Do you have thoughts of harming or killing yourself?" and "Have you recently had thoughts about harming or killing others?". NUTRITIONAL RISK ASSESSMENT: The nutritional risk assessment revealed no deficiencies. FUNCTIONAL ASSESSMENT: Functional assessment: no impairments noted. LEARNING NEEDS ASSESSMENT: The learning needs assessment revealed no barriers. ABUSE ASSESSMENT: Abuse assessment: The patient was asked "Do you feel safe in your home?" and "Has anyone hurt you or threatened to hurt you?". --09: Nika Arshad R.N. PROBLEMS: Ureterolithiasis. Nephrolithiasis. Vomiting. Diarrhea. Abdominal Pain. Contusion. Sprain. --: Nika Arshad R.N. Interventions ID band on patient. Ambulatory. --: Nika Arshad R.N. PHYSICAL ASSESSMENT Ambulatory to room. GENERAL / NEURO / PSYCH: Alert. Oriented X 4. Appears in pain. HEENT: Mucous membranes are pink. RESPIRATORY: Respirations not labored. CVS: Capillary refill less than 2 seconds. GI / : Abdomen soft. SKIN: Skin is warm and dry. --: Nika Arshad R.N. NURSING PROGRESS NOTES Patient gowned. Head of bed elevated. Two patient identifiers checked. Call light placed in reach. Side rails up x 2. Bed placed in lowest position. Brakes of bed on. Patient ready for evaluation- chart flagged. --: Nika Arshad R.N. Patient ID band checked for patient name, birthdate and medical record number: patient confirmed. Instructions provided to collect clean catch urine and patient verbalized understanding. Clean catch urine collected with return of yellow-colored clear urine; sample sent to lab for urinalysis. Specimen labeled in the presence of the patient. --09:08 Nika Arshad R.N. 09:08 08/10/2016 Site #1 started via IV in the left antecubital space with an 18g angiocath, with aseptic technique and good blood return; one attempt. Blood drawn: rainbow set. Labeled in the presence of the patient and sent to the lab. Saline lock flushed with 10 mL saline. --09:08 Nika Arshad R.N. 09:12 08/10/2016 Started bag #1 1000 mL IV Fluids IV NS (Saline); at 1000 mL/hr over 1 hour(s) via site #1 via IV pump. Allergies verified and confirmed 5 rights. IV patency established. IV site checked: no pain, redness, or swelling. IV flushed thoroughly pre- and post-medication administration. --09:14 Nika Arshad R.N. 09:14 08/10/2016 Toradol IVP 30 mg given over 2 minute(s) via site #1. Allergies verified and confirmed 5 rights. IV patency established. IV site checked: no pain, redness, or swelling. IV flushed thoroughly pre- and post-medication administration. --09:14 Nika Arshad R.N. 09:18 08/10/2016 Zofran (Ondansetron HCl) IVP 4 mg given over 1 minute(s) via site #1. Allergies verified and confirmed 5 rights. IV patency established. IV site checked: no pain, redness, or swelling. IV flushed thoroughly pre- and post-medication administration. --09:18 Nika Arshad R.N. 09:19 08/10/2016 Dilaudid (HYDROmorphone HCl PF) IVP 1 mg given over 2 minute(s) via site #1. Allergies verified, confirmed 5 rights and sedative warning given to the patient. IV patency established. IV site checked: no pain, redness, or swelling. IV flushed thoroughly pre- and post-medication administration. --09:19 Nika Arshad R.N. 09:22 08/10/16. BP: 136/92. HR: 66. RR: 15. O2 saturation: 99%. Pain level now 10. --09:23 Nika Arshad R.N. 10:15 08/10/2016 IV Fluids IV NS Discontinued: bag #1 infused. Total amount infused: 1000 mL. IV patency established. IV site checked: no pain, redness, or swelling. IV flushed thoroughly. --10:23 Nika Arshad R.N. DISPOSITION / DISCHARGE Departure time: 10:22. Condition at departure: stable. No learning barriers present. Discharge instructions provided and reviewed with the patient. Reviewed medication(s) side effects, precautions, dosing and course information. Prescription(s) given to the patient. Reviewed referral to family practice for followup. Patient verbalized understanding. Written instructions provided in Kazakh. The patient was discharged home and accompanied by parent. He left the Emergency Department ambulatory and via private vehicle. Parent driving. Medication list reviewed and validated. --10:23 Nika Arshad R.N. 10:22 08/10/16. BP: 128/84. HR: 60. RR: 14. O2 saturation: 100%. Temp: 98.2 F. Pain level now 4/10. --10:23 Nika Arshad R.N. 10:23 08/10/2016 Site #1 removed upon discharge. Catheter intact. Manual pressure and bandaid applied. --10:23 Nika Arshad R.N. Locked/Released at 08/10/2016 10:27 by Nika Arshad R.N.
--- NOTE | 2016-08-10 10:12 | ED ORDER SUMMARY ---
..... Patient: JAZMYN MARIO OrderSheet [facility] VisitID: [id number] [place] [address] 20y, M Registration Date/Time: 08/10/2016 ORDER SHEET Weight: 68.0 kg (stated) Allergies: No Known Drug Allergy GENERAL ORDERS: UA-Culture if indicated Urgent (09:08/10/2016 Andriy MACKENZIE) (Ack 9:12 Asad) (9:19 Joe R.N.) MEDICATION ORDERS: IV FLUIDS: IV NS : initial bolus 1000 mL (1000 mL/hr), then 200 mL/hr for 4h (NOW); Routine (:08/10/2016 Andriy MACKENZIE) (9:14 Joe Bajwa.N.) Toradol IV 30 mg (NOW) (09:08/10/2016 Andriy MACKENZIE) (9:14 Joe Bajwa.N.) Dilaudid IV 1 mg (NOW) (09:08/10/2016 Andriy MACKENZIE) (9:19 Joe R.N.) Zofran IV 4 mg (NOW) (09:08/10/2016 Andriy MACKENZIE) (9:18 Joe Bajwa.N.) ORDER SHEET NOTES: [Electronically signed by Nika Arshad R.N. (10:08/10/2016)] [Electronically signed by Boris Maloney MD (07:59 08/11/2016)] [Electronically locked/signed by Nika Arshad R.N. (10:08/10/2016)]
--- NOTE | 2016-08-10 10:12 | ED CLINICAL REPORT ---
Clinical Report - Physicians/Mid Levels [facility] [address] [place] [address] 08/10/2016 8:42 Patient: JAZMYN MARIO Time Seen: 09:25 Aug 10 2016. Arrived- By private vehicle. Historian- patient. CPT: ER phys charges level 4 (#[id number]). HISTORY OF PRESENT ILLNESS Chief Complaint: FLANK PAIN. At its maximum, severity described as severe. When seen in the E.D., severity described as moderate. Modifying factors. Not worsened by anything. Not relieved by anything. It is described as "pain" and sharp and it is described as located in the left flank. This started today and is still present. No nausea, vomiting or diarrhea. Similar symptoms previously: Recent medical care: The patient was seen recently at this facility in the emergency department (9 days [employer]). Seen for similar symptoms. Evaluation/treatment: abdominal CT scan. Diagnosis: kidney stone. REVIEW OF SYSTEMS No constipation, black stools, hematemesis, difficulty with urination or pain with urination. No urinary frequency, fever, sore throat, chest pain or difficulty breathing. No cough, joint pain, skin rash, chills or back pain. All systems otherwise negative, except as recorded above. PAST HISTORY Ureterolithiasis. Nephrolithiasis. Vomiting. Diarrhea. Abdominal Pain. Contusion. Sprain. Medications: Percocet Oral, as needed. Allergies: No Known Drug Allergy. SOCIAL HISTORY Never smoker. No alcohol use or drug use. ADDITIONAL NOTES The nursing notes have been reviewed. PHYSICAL EXAM Vital Signs: 08/10/2016 09:02 BP: 157/105. HR: 70. RR: 15. O2 saturation: 97%. Temp: 97.8 F. Appearance: Alert. Appears to be in pain. Patient in moderate distress. Eyes: Pupils equal, round and reactive to light. Eyes normal inspection. ENT: Ears normal. Nose normal. Pharynx normal. Neck: Normal inspection. Neck supple. CVS: Normal heart rate and rhythm. Heart sounds normal. Pulses normal. Respiratory: No respiratory distress. Breath sounds normal. Chest nontender. Abdomen: Soft and nontender. Bowel sounds normal. Back: Normal inspection. No CVA tenderness. Skin: Skin warm. Normal skin color. No rash. Extremities: Extremities exhibit normal ROM. No lower extremity edema. Neuro: Oriented X 3. No motor deficit. No sensory deficit. LABS, X-RAYS, AND EKG Laboratory Tests: UA-Culture if indicated: (AVIS: 08/10/2016 09:02) ( MsgRcvd 08/10/2016 09:28) Final results Test Result Flag Units (Reference) URINE COLOR YELLOW URINE APPEARANCE CLEAR URINE GLUCOSE NEGATIVE (NEGATIVE) URINE BILIRUBIN NEGATIVE (NEGATIVE) URINE KETONE NEGATIVE (NEGATIVE) URINE SPECIFIC GRAVITY 1.010 (1.010-1.030) URINE PH 6.5 (5.0-8.0) URINE PROTEIN NEGATIVE (NEGATIVE) URINE UROBILINOGEN 0.2 EU/dL (0.2-1.0) URINE NITRITE NEGATIVE (NEGATIVE) URINE BLOOD 3+ (NEGATIVE) URINE LEUK ESTERASE NEGATIVE (NEGATIVE) URINE RBC 50-75 rbc/hpf (0-1) URINE WBC 0-1 wbc/hpf (0-1) URINE EPITHELIAL CELLS 0-1 EPI/hpf (0-5) URINE BACTERIA NONE SEEN (NONE SEEN) URINE COMMENT CULT NOT INDICATED URINE CULTURES ARE SET-UP BASED ON THE FOLLOWING CRITERIA:POSITIVE NITRITEPOSITIVE LEUKOCYTE ESTERASEGREATER THAN 10 WHITE BLOOD CELLSMODERATE (2+) OR GREATER BACTERIA . PROGRESS AND PROCEDURES Course of Care: Called the on-call PCP: CT from 3 days ago. NO stone in the ureter. No hydro but CT was done with contrast. Pt likely has a recurrent stone on the left. Pt has had 2 CT scans in the past 10 days. Clinically he has a stone so will treat with pain medications and image only if not resolving. Dilaudid 1 mg IV Zofran 4 mg IV Toradol 30 mg IV Patient is stable. Symptoms much better. Patient/family counseled. Disposition: Discharged. Condition: stable. CLINICAL IMPRESSION Ureterolithiasis (single stone) in the left ureter with renal colic. INSTRUCTIONS Rest. Do not work for two days until better. Drink plenty of fluids. Warnings: Further evaluation is necessary. GENERAL WARNINGS: Return or contact your physician immediately if your condition worsens or changes unexpectedly, if not improving as expected, or if other problems arise. Your Current Medications: CONTINUE TAKING THE FOLLOWING MEDICATIONS: Percocet Oral : prn. Prescription Medications: Zofran (orally disintegrating tablets) 4 mg: take 1 orally every 6 hours as needed for nausea. Dispense five (5). No refill. Oxycodone/APAP 5 mg/325 mg: take 1-2 tablets orally every 4 hours as needed for pain. Dispense twenty-five (25). No refill. Flomax 0.4 mg: take 1 orally every 24 hours. Dispense five (5). No refills. Substitution is permissible. Follow-up: Follow up with your doctor in two days if not better. Understanding of the discharge instructions verbalized by patient. (Electronically signed by Boris Maloney MD 08/11/2016 7:59)
--- NOTE | 2016-08-11 08:00 | ED DISCHARGE INSTRUCTIONS ---
Patient: JAZMYN MARIO General Instructions [facility] VisitID: [id number] [place] [address] 20y, M Registration Date/Time: 08/10/2016 Ureterolithiasis (single stone) in the left ureter with renal colic. INSTRUCTIONS Rest. Do not work for two days until better. Drink plenty of fluids. Warnings: Further evaluation is necessary. GENERAL WARNINGS: Return or contact your physician immediately if your condition worsens or changes unexpectedly, if not improving as expected, or if other problems arise. Your Current Medications: CONTINUE TAKING THE FOLLOWING MEDICATIONS: Percocet Oral : prn. Prescription Medications: Zofran (orally disintegrating tablets) 4 mg: take 1 orally every 6 hours as needed for nausea. Dispense five (5). No refill. Oxycodone/APAP 5 mg/325 mg: take 1-2 tablets orally every 4 hours as needed for pain. Dispense twenty-five (25). No refill. Flomax 0.4 mg: take 1 orally every 24 hours. Dispense five (5). No refills. Substitution is permissible. Follow-up: Follow up with your doctor in two days if not better. Understanding of the discharge instructions verbalized by patient. ADDITIONAL INFORMATION Kidney Stone (W/ Colic) The sharp cramping pain and nausea/vomiting that you have is due to a small stone which has formed in the kidney and is now passing down a narrow tube (ureter) on its way to your bladder. Once it reaches your bladder, the pain will stop. The stone may pass in your urine stream in one piece. [The size may be 1/16" to 1/4" (1-6mm)]. Or, the stone may also break up into zeyad fragments which you may not even notice. Once you have had a kidney stone, you are at risk for developing another one in the future. Home Care: Drink plenty of fluids (at least 8 to 10 glasses of water a day). Most stones will pass on their own, but may take from a few hours to a few days. Sometimes the stone is too large to pass by itself and special methods will have to be used to remove the stone. Each time you urinate, do so in a jar. Pour the urine from the jar through the strainer and into the toilet. Continue doing this until 24 hours after your pain stops. By then, if there was a kidney stone, it should pass from your bladder. Some stones dissolve into sand-like particles and pass right through the strainer. In that case, you wont ever see a stone. Save any stone that you find in the strainer and bring it to your doctor for analysis. It may be possible to prevent certain types of stones from forming. Therefore, it is important to know what kind of stone you have. Try to stay as active as possible since this will help the stone pass. Do not stay in bed unless your pain prevents you from getting up. You may notice a red, pink or brown color to your urine. This is normal while passing a kidney stone. Follow Up with your doctor or return to this facility if the pain lasts more than 48 hours. Get Prompt Medical Attention if any of the following occur: Pain that is not controlled by the medicine given Repeated vomiting or unable to keep down fluids Weakness, dizziness or fainting Fever of 100.4F (38C) or higher, or as directed by your healthcare provider Passage of solid red or brown urine (can't see through it) or urine with lots of blood clots Unable to pass urine for 8 hours and increasing bladder pressure Ondansetron Oral disintegrating tablet What is this medicine? ONDANSETRON (on TOSHA se benny) is used to treat nausea and vomiting caused by chemotherapy. It is also used to prevent or treat nausea and vomiting after surgery. How should I use this medicine? These tablets are made to dissolve in the mouth. Do not try to push the tablet through the foil backing. With dry hands, peel away the foil backing and gently remove the tablet. Place the tablet in the mouth and allow it to dissolve, then swallow. While you may take these tablets with water, it is not necessary to do so. Talk to your roller mechanic regarding the use of this medicine in children. Special care may be needed. What side effects may I notice from receiving this medicine? Side effects that you should report to your doctor or health school childcare attendant as soon as possible: allergic reactions like skin rash, itching or hives, swelling of the face, lips, or tongue breathing problems dizziness fast or irregular heartbeat feeling faint or lightheaded, falls fever and chills swelling of the hands and feet tightness in the chest Side effects that usually do not require medical attention (report to your doctor or health school childcare attendant if they continue or are bothersome): constipation or diarrhea headache What may interact with this medicine? Do not take this medicine with any of the following medications: -apomorphine -cisapride -dofetilide -dronedarone -pimozide -thioridazine -ziprasidone This medicine may also interact with the following medications: -carbamazepine -phenytoin -rifampicin -tramadol -other medicines that prolong the QT interval (cause an abnormal heart rhythm) What if I miss a dose? If you miss a dose, take it as soon as you can. If it is almost time for your next dose, take only that dose. Do not take double or extra doses. Where should I keep my medicine? Keep out of the reach of children. Store between 2 and 30 degrees C (36 and 86 degrees F). Throw away any unused medicine after the expiration date. What should I tell my health care provider before I take this medicine? They need to know if you have any of these conditions: heart disease history of irregular heartbeat liver disease low levels of magnesium or potassium in the blood an unusual or allergic reaction to ondansetron, granisetron, other medicines, foods, dyes, or preservatives or trying to get breast-feeding What should I watch for while using this medicine? Check with your doctor or health school childcare attendant as soon as you can if you have any sign of an allergic reaction. You have been given the following additional information: Kidney Stone W/ Colic Ondansetron Oral disintegrating tablet Rest. Do not work for two days until better. (Electronically signed by Boris Maloney MD 08/11/2016 7:59)
--- NOTE | 2016-08-11 08:00 | ED MAR SUMMARY ---
..... Medication Administration Record [facility] [address] [place] [address] Patient: JAZMYN MARIO Visit ID: [id number] 20y, M Weight: 68.0 kg Height/Length: 69 in BMI: 22.2 ALLERGIES: No Known Drug Allergy Start 09:12 08/10/2016 Nika Arshad R.N., Stop 10:15 08/10/2016 Nika Arshad R.N. Medication Administered: IV NS (SALINE), Dose: IV Fluids over 1 hour(s), Rate: 1000 mL/hr, Dispensed: 1000 mL bag, Site: #1 left AC. Medication Ordered: IV NS : initial bolus 1000 mL (1000 mL/hr), then 200 mL/hr for 4h (NOW); Routine. Given 09:14 08/10/2016 Nika Arshad R.N. Medication Administered: TORADOL [IVP], Dose: 30 mg IVP over 2 minute(s), Site: #1 left AC. Medication Ordered: Toradol IV 30 mg (NOW). Given 09:18 08/10/2016 Nika Arshad R.N. Medication Administered: ZOFRAN [IVP] (ONDANSETRON HCL), Dose: 4 mg IVP over 1 minute(s), Site: #1 left AC. Medication Ordered: Zofran IV 4 mg (NOW). Given 09:19 08/10/2016 Nika Arshad R.N. Medication Administered: DILAUDID [IVP] (HYDROMORPHONE HCL PF), Dose: 1 mg IVP over 2 minute(s), Site: #1 left AC. Medication Ordered: Dilaudid IV 1 mg (NOW).
--- NOTE | 2016-08-11 08:00 | ED MED RECONCILIATION SUMMARY ---
Patient: JAZMYN MARIO Medication Reconciliation Report [facility] VisitID: [id number] [place] [address] 20y, M Registration Date/Time: 08/10/2016 Weight: 68.0 kg Height/Length: 69 in. BMI: 22.2 ALLERGIES: No Known Drug Allergy The patient's Home Medications are listed below: CONTINUE TAKING THE FOLLOWING MEDICATIONS: Percocet Oral The source(s) of the original Home Medication information: Not obtained. The following Medications were given to the patient in the Emergency Department: IV NS IV Fluids bolus 0, then 1000 mL/hr, administered: 08/10/2016 9:12:00 AM Toradol [IVP] IVP 30 mg, administered: 08/10/2016 9:14:00 AM Zofran [IVP] IVP 4 mg, administered: 08/10/2016 9:18:00 AM Dilaudid [IVP] IVP 1 mg, administered: 08/10/2016 9:19:00 AM The following Medications were prescribed to the patient: Zofran (orally disintegrating tablets) 4 mg: take 1 orally every 6 hours as needed for nausea. Dispense five (5). No refill. -- Boris Maloney MD Oxycodone/APAP 5 mg/325 mg: take 1-2 tablets orally every 4 hours as needed for pain. Dispense twenty-five (25). No refill. -- Boris Maloney MD Flomax 0.4 mg: take 1 orally every 24 hours. Dispense five (5). No refills. Substitution is permissible. -- Boris Maloney MD
--- NOTE | 2016-08-11 08:00 | ED MED RECONCILIATION SUMMARY ---
Patient: JAZMYN MARIO Medication Reconciliation Report [facility] VisitID: [id number] [place] [address] 20y, M Registration Date/Time: 08/10/2016 Weight: 68.0 kg Height/Length: 69 in. BMI: 22.2 ALLERGIES: No Known Drug Allergy The patient's Home Medications are listed below: CONTINUE TAKING THE FOLLOWING MEDICATIONS: Percocet Oral The source(s) of the original Home Medication information: Not obtained. The following Medications were given to the patient in the Emergency Department: IV NS IV Fluids bolus 0, then 1000 mL/hr, administered: 08/10/2016 9:12:00 AM Toradol [IVP] IVP 30 mg, administered: 08/10/2016 9:14:00 AM Zofran [IVP] IVP 4 mg, administered: 08/10/2016 9:18:00 AM Dilaudid [IVP] IVP 1 mg, administered: 08/10/2016 9:19:00 AM The following Medications were prescribed to the patient: Zofran (orally disintegrating tablets) 4 mg: take 1 orally every 6 hours as needed for nausea. Dispense five (5). No refill. -- Boris Maloney MD Oxycodone/APAP 5 mg/325 mg: take 1-2 tablets orally every 4 hours as needed for pain. Dispense twenty-five (25). No refill. -- Boris Maloney MD Flomax 0.4 mg: take 1 orally every 24 hours. Dispense five (5). No refills. Substitution is permissible. -- Boris Maloney MD
--- NOTE | 2016-08-11 08:00 | ED DISCHARGE INSTRUCTIONS ---
Patient: JAZMYN MARIO General Instructions [facility] VisitID: [id number] [place] [address] 20y, M Registration Date/Time: 08/10/2016 Ureterolithiasis (single stone) in the left ureter with renal colic. INSTRUCTIONS Rest. Do not work for two days until better. Drink plenty of fluids. Warnings: Further evaluation is necessary. GENERAL WARNINGS: Return or contact your physician immediately if your condition worsens or changes unexpectedly, if not improving as expected, or if other problems arise. Your Current Medications: CONTINUE TAKING THE FOLLOWING MEDICATIONS: Percocet Oral : prn. Prescription Medications: Zofran (orally disintegrating tablets) 4 mg: take 1 orally every 6 hours as needed for nausea. Dispense five (5). No refill. Oxycodone/APAP 5 mg/325 mg: take 1-2 tablets orally every 4 hours as needed for pain. Dispense twenty-five (25). No refill. Flomax 0.4 mg: take 1 orally every 24 hours. Dispense five (5). No refills. Substitution is permissible. Follow-up: Follow up with your doctor in two days if not better. Understanding of the discharge instructions verbalized by patient. ADDITIONAL INFORMATION Kidney Stone (W/ Colic) The sharp cramping pain and nausea/vomiting that you have is due to a small stone which has formed in the kidney and is now passing down a narrow tube (ureter) on its way to your bladder. Once it reaches your bladder, the pain will stop. The stone may pass in your urine stream in one piece. [The size may be 1/16" to 1/4" (1-6mm)]. Or, the stone may also break up into zeyad fragments which you may not even notice. Once you have had a kidney stone, you are at risk for developing another one in the future. Home Care: Drink plenty of fluids (at least 8 to 10 glasses of water a day). Most stones will pass on their own, but may take from a few hours to a few days. Sometimes the stone is too large to pass by itself and special methods will have to be used to remove the stone. Each time you urinate, do so in a jar. Pour the urine from the jar through the strainer and into the toilet. Continue doing this until 24 hours after your pain stops. By then, if there was a kidney stone, it should pass from your bladder. Some stones dissolve into sand-like particles and pass right through the strainer. In that case, you wont ever see a stone. Save any stone that you find in the strainer and bring it to your doctor for analysis. It may be possible to prevent certain types of stones from forming. Therefore, it is important to know what kind of stone you have. Try to stay as active as possible since this will help the stone pass. Do not stay in bed unless your pain prevents you from getting up. You may notice a red, pink or brown color to your urine. This is normal while passing a kidney stone. Follow Up with your doctor or return to this facility if the pain lasts more than 48 hours. Get Prompt Medical Attention if any of the following occur: Pain that is not controlled by the medicine given Repeated vomiting or unable to keep down fluids Weakness, dizziness or fainting Fever of 100.4F (38C) or higher, or as directed by your healthcare provider Passage of solid red or brown urine (can't see through it) or urine with lots of blood clots Unable to pass urine for 8 hours and increasing bladder pressure Ondansetron Oral disintegrating tablet What is this medicine? ONDANSETRON (on TOSHA se benny) is used to treat nausea and vomiting caused by chemotherapy. It is also used to prevent or treat nausea and vomiting after surgery. How should I use this medicine? These tablets are made to dissolve in the mouth. Do not try to push the tablet through the foil backing. With dry hands, peel away the foil backing and gently remove the tablet. Place the tablet in the mouth and allow it to dissolve, then swallow. While you may take these tablets with water, it is not necessary to do so. Talk to your front office coordinator regarding the use of this medicine in children. Special care may be needed. What side effects may I notice from receiving this medicine? Side effects that you should report to your doctor or health hearing healthcare practitioner as soon as possible: allergic reactions like skin rash, itching or hives, swelling of the face, lips, or tongue breathing problems dizziness fast or irregular heartbeat feeling faint or lightheaded, falls fever and chills swelling of the hands and feet tightness in the chest Side effects that usually do not require medical attention (report to your doctor or health hearing healthcare practitioner if they continue or are bothersome): constipation or diarrhea headache What may interact with this medicine? Do not take this medicine with any of the following medications: -apomorphine -cisapride -dofetilide -dronedarone -pimozide -thioridazine -ziprasidone This medicine may also interact with the following medications: -carbamazepine -phenytoin -rifampicin -tramadol -other medicines that prolong the QT interval (cause an abnormal heart rhythm) What if I miss a dose? If you miss a dose, take it as soon as you can. If it is almost time for your next dose, take only that dose. Do not take double or extra doses. Where should I keep my medicine? Keep out of the reach of children. Store between 2 and 30 degrees C (36 and 86 degrees F). Throw away any unused medicine after the expiration date. What should I tell my health care provider before I take this medicine? They need to know if you have any of these conditions: heart disease history of irregular heartbeat liver disease low levels of magnesium or potassium in the blood an unusual or allergic reaction to ondansetron, granisetron, other medicines, foods, dyes, or preservatives or trying to get breast-feeding What should I watch for while using this medicine? Check with your doctor or health hearing healthcare practitioner as soon as you can if you have any sign of an allergic reaction. You have been given the following additional information: Kidney Stone W/ Colic Ondansetron Oral disintegrating tablet Rest. Do not work for two days until better. (Electronically signed by Boris Maloney MD 08/11/2016 7:59)
--- NOTE | 2016-08-11 08:00 | ED MAR SUMMARY ---
..... Medication Administration Record [facility] [address] [place] [address] Patient: JAZMYN MARIO Visit ID: [id number] 20y, M Weight: 68.0 kg Height/Length: 69 in BMI: 22.2 ALLERGIES: No Known Drug Allergy Start 09:12 08/10/2016 Nika Arshad R.N., Stop 10:15 08/10/2016 Nika Arshad R.N. Medication Administered: IV NS (SALINE), Dose: IV Fluids over 1 hour(s), Rate: 1000 mL/hr, Dispensed: 1000 mL bag, Site: #1 left AC. Medication Ordered: IV NS : initial bolus 1000 mL (1000 mL/hr), then 200 mL/hr for 4h (NOW); Routine. Given 09:14 08/10/2016 Nika Arshad R.N. Medication Administered: TORADOL [IVP], Dose: 30 mg IVP over 2 minute(s), Site: #1 left AC. Medication Ordered: Toradol IV 30 mg (NOW). Given 09:18 08/10/2016 Nika Arshad R.N. Medication Administered: ZOFRAN [IVP] (ONDANSETRON HCL), Dose: 4 mg IVP over 1 minute(s), Site: #1 left AC. Medication Ordered: Zofran IV 4 mg (NOW). Given 09:19 08/10/2016 Nika Arshad R.N. Medication Administered: DILAUDID [IVP] (HYDROMORPHONE HCL PF), Dose: 1 mg IVP over 2 minute(s), Site: #1 left AC. Medication Ordered: Dilaudid IV 1 mg (NOW).
== END 2016-08-10 10:22 | disposition home or self-care (01) ==
LOC: ED SRH 08:40
DX: N20.2 Calculus of kidney with calculus of ureter (principal)
CPT/HCPCS: 90004